=== PATIENT | male | born 1945 | race Caucasian/White ===

== ENCOUNTER → 2016-09-23 | Outpatient (CLI) | payer BC ==
--- NOTE | ~2016-09-23 | CR7 ---
[facility] A Service of [facility] & [facility] RADIOLOGY TEXT RESULTS PATIENT: GUILHERME DONALD LOCATION: [facility] : 49 UNIT #: [id number] AGE: [address]: Scottie Aldrich MD SEX: M ORDER DR: [id number] [facility] [address] [place], [place] [address] [id number] O MR#: [id number] Acc #: [id number] NAME: GUILHERME DONALD : 1945 SEX: M STUDY DATE/TIME: 09/23/2016 15:52 UNIT: [facility] ROOM: STUDY DESCRIPTION: CR Abdomen Single AP View Attending Physician: Scottie Aldrich M.D. Referring Physician: Scottie Aldrich M.D. Ordering Physician: Scottie Aldrich M.D. Primary Care Physician: Mallory Neal Aprn MEDICAL IMAGING REPORT This report is preliminary unless electronic signature is present EXAM Single view abdomen. INDICATIONS Renal calculi. FINDINGS AP radiograph of the abdomen compared to 06/19/2015. The renal shadows are symmetric bilaterally. Small calculi are suspected in the lower pole right kidney. There are several small fracture fragments measuring 2 to 3 mm in size. No bladder calculi. The bowel gas pattern is nonobstructive. No acute osseous abnormalities. IMPRESSION Right nephrolithiasis. Dictated by... Julius Barone M.D. THIS IS AN ELECTRONICALLY VERIFIED REPORT Julius Barone M.D. at 09/24/2016 3:54 PM NATHAN/brennon TD: 09/24/2016 12:06 JOB #: [id number] MEDICAL IMAGING REPORT Page 1 of 1 COPY
== END | disposition home or self-care (01) ==
LOC: CRAD 15:36
DX: N20.0 Calculus of kidney (principal)
CPT/HCPCS: 74000